=== PATIENT | female | born 1955 | race Hispanic/Latino ===

== ENCOUNTER → 2021-07-21 | Outpatient (CLI) | payer OTHER ==
[2021-07-21 13:33] LABS: CREATININE 0.7 mg/dL (0.5-1.5)
== END ==
LOC: LAB 08:20
PROVIDERS: ATTEND Internal Medicine Cardiovascular Disease
DX: R94.31 Abnormal electrocardiogram [ECG] [EKG] (principal)
CPT/HCPCS: 36415; 82565; 84520

== ENCOUNTER → 2023-09-15 | Outpatient (CLI) | payer MEDICARE ==
[2023-09-15 12:33] LABS: CHOLESTEROL 123 mg/dL (<200); HDL CHOLESTEROL 48 mg/dL (35-85); LDL DIRECT 69 mg/dL (0-99); TRIGLYCERIDES 71 mg/dL (30-200)
== END | disposition home or self-care (01) ==
LOC: LAB 08:20
PROVIDERS: ATTEND Internal Medicine Cardiovascular Disease
DX: I25.10 Atherosclerotic heart disease of native coronary artery without angina pectoris (principal); E78.5 Hyperlipidemia, unspecified
CPT/HCPCS: 36415; 80061; 84484